=== PATIENT | female | born 1960 | race Caucasian/White ===

== ENCOUNTER → 2017-12-24 | Outpatient (CLI) | payer OTHER ==
[~2017-12-24] MED LIST: GADAVIST IV PRN
--- NOTE | 2017-12-24 11:19 | DIAGNOSTIC IMAGING REPORT ---
MRA NECK COMBO HISTORY: Mental status change HYPERTENSION,NECK PAIN,HYPERLIPIDEMIA,FM HX STROKE TECHNIQUE: [id number] and gadolinium-enhanced MRA of the neck was performed both before and after the intravenous administration of contrast. All measurements were calculated based on NASCET criteria. COMPARISON STUDY: None. FINDINGS: The aortic arch and proximal great vessels are widely patent. There is no significant stenosis, occlusion, or dissection identified within the bilateral common carotid, internal carotid, or vertebral arteries. Left vertebral artery is quite small in caliber possibly a congenital basis. Minimal plaque formation at the carotid bifurcations. IMPRESSION: No significant stenosis, occlusion, or dissection identified within the carotid or vertebral arteries. Minimal plaque dimension of the carotid bifurcations. Very small caliber left vertebral artery possibly on a congenital basis. The above report was generated using voice recognition software. It may contain grammatical, syntax or spelling errors. Electronically signed by: Gerber Donaldson M.D. 12/24/2017 11:18 AM Dictated Date/Time: 12/24/2017 11:14 AM
== END | disposition home or self-care (01) ==
LOC: C.MRI 10:14
PROVIDERS: ATTEND Nurse Practitioner Family
DX: M54.2 Cervicalgia (principal); E78.2 Mixed hyperlipidemia; I10 Essential (primary) hypertension; Z82.3 Family history of stroke; Z88.2 Allergy status to sulfonamides; Z88.8 Allergy status to other drugs, medicaments and biological substances